=== PATIENT | female | born 1950 | race Caucasian/White ===

== ENCOUNTER → 2016-05-04 | Outpatient (CLI) | payer MEDICARE | LOC: SL 10:00 | PROVIDERS: ATTEND Family Medicine | DX: G47.33 Obstructive sleep apnea (adult) (pediatric) (principal); G47.30 Sleep apnea, unspecified ==

== ENCOUNTER → 2016-05-18 | Outpatient (CLI) | payer MEDICARE | LOC: SL 20:30 | PROVIDERS: ATTEND Family Medicine | DX: G47.19 Other hypersomnia (principal); R06.83 Snoring; I10 Essential (primary) hypertension ==

== ENCOUNTER 2016-06-07 20:55 | Emergency (ER) | payer MEDICARE ==
[2016-06-07] MEDS ORDERED: OXYMETAZOLINE NASAL SPRAY 15 ML BTTL ONE (21:38)
[2016-06-07] MEDS ORDERED: OXYMETAZOLINE NASAL SPRAY 15 ML BTTL BNAS ONE (21:41)
[2016-06-07] MEDS ORDERED: KETOROLAC TROMETHAMINE INJ 30 MG/ML VIAL IM ONE (21:43)
[2016-06-07] MEDS ORDERED: cefTRIAXone SODIUM 1 GM VIAL IM ONE (21:51)
[2016-06-07] MEDS ORDERED: LIDOCAINE 1% 10 ML VIAL INJ ONE (21:53)
--- NOTE | 2016-06-07 22:33 | ED.PDOC ---
History of Present Illness - General Chief Complaint: ENT Problem Stated Complaint: left ear pain, sinus congestion Time Seen by Provider: 06/07/16 21:39 Source: patient, RN notes reviewed, Vital Signs reviewed Exam Limitations: no limitations - History of Present Illness Initial Comments: Patient is a 66 y/o female who has had severe left ear pain and bleeding from the ear for the past 4 hours. She took ASA 325 mg however it did not help. The pain is about a 4/10, however she gets severe shooting pains in the ear. She has had problems with nasal congestion for the past several days, and went to blow her nose and felt sudden pressure behind her ear and then shooting pain. The bleeding is mild. She has had a low-grade fever for the past 2 days. Timing/Duration: abrupt, this evening Severity: severe EENT Location: ear (L) Prearrival Treatment: over the counter meds - ASA 325 mg Improving Factors: nothing Worsening Factors: nothing Associated Symptoms: ear drainage, facial pain/swelling, nasal congestion/ drainage Allergies/Adverse Reactions: Allergies Atropine [From Lomotil] Allergy (Verified 03/01/15 15:54) Capsaicin Allergy (Verified 06/07/16 21:22) Diphenoxylate [From Lomotil] Allergy (Verified 03/01/15 15:54) Neomycin Allergy (Verified 06/07/16 21:22) Pioglitazone [From Actos] Allergy (Verified 06/07/16 21:22) Home Medications: Ambulatory Orders Metoprolol Tartrate [Lopressor] 50 mg PO BID 08/23/12 Levothyroxine Sodium 125 mcg PO DAILY 03/02/15 Cefdinir [Omnicef] 300 mg PO BID #20 cap 06/07/16 Mometasone Furoate (Nasal) [Nasonex] 100 mcg OH DAILY PRN #1 ea 06/07/16 Review of Systems - Review of Systems Constitutional: States: chills, fever EENTM: States: ear pain, ear discharge, nose congestion Respiratory: States: no symptoms reported Cardiology: States: no symptoms reported Gastrointestinal/Abdominal: States: no symptoms reported Genitourinary: States: no symptoms reported Musculoskeletal: States: no symptoms reported Skin: States: no symptoms reported Neurological: States: no symptoms reported Endocrine: States: no symptoms reported Hematologic/Lymphatic: States: no symptoms reported All other Systems: Reviewed and Negative Past Medical History (General) - Patient Medical History Hx Seizures: No Hx Stroke: No Hx Dementia: No Hx Asthma: Yes Hx of COPD: No Hx Cardiac Disorders: No Hx Congestive Heart Failure: No Hx Pacemaker: No Hx Hypertension: Yes Hx Thyroid Disease: Yes Hx Diabetes: Yes Hx Gastroesophageal Reflux: No Hx Renal Disease: No Hx Cancer: No Hx of HIV: No Hx Hepatitis C: No Hx MRSA: No Surgical History: cholecystectomy, tonsillectomy - Vaccination History Hx Tetanus, Diphtheria Vaccination: No Hx Influenza Vaccination: No Hx Pneumococcal Vaccination: No Immunizations Up to Date: No - Social History Hx Tobacco Use: No Hx Chewing Tobacco Use: No Hx Alcohol Use: No Hx Substance Use: No Hx Substance Use Treatment: No Hx Depression: No Feels Threatened In Home Enviroment: No Feels Threatened In a Relationship: No Hx Physical Abuse: No Hx Emotional Abuse: No Hx Suspected Abuse: No Family Medical History - Family History Mother Name: Keena Ybarra Age (years): 76 Living Status: Age at (years of age): 76 Cause of : Breast cancer. Hx Family Asthma: Yes - Pt. Hx Family Congestive Heart Failure: No Hx Family Hypertension: Yes - Parents and brother. Hx Family Stroke: No Hx Cardiac Disease: Yes - Father and brother. Hx Family Diabetes: Yes - Parents and pt. Hx Family Cancer: Yes - Mother, great grand mother breast cancer. Hx Family;Other: Mothers sister colon cancer. Pt with skin cancer. Physical Exam - Physical Exam General Appearance: Alert, Obvious distress Eye Exam: bilateral normal Ear Exam: right ear: canal normal, TM normal, left ear: TM bulging, TM perforation, evidence of perforation, bleeding, other - Blood in the EAC, bilateral ear: auricle normal Nasal Exam: other - mucosal congestion Throat Exam: normal mouth inspection, pharynx normal Neck: non-tender, full range of motion, supple Cardiovascular/Respiratory: no respiratory distress Neurologic: alert, normal mood/affect, oriented x 3 Progress - Progress Progress: 06/07/16 22:35 Patient was given Afrin - 2 sprays each nostril, Toradol, and Rocephin. Her pain decreased significantly after the Toradol. She has an ENT in [place] , Dr. Olvera, that she can follow up with PEDRO PABLO. She will call his office in the morning. - Results/Orders Results/Orders: 06/07/16 06/07/16 21:07 21:17 Temperature 99.2 F Pulse Rate [ 81 monitor] Respiratory 16 16 Rate Blood Pressure 170/94 [Left Arm] O2 Sat by Pulse 99 Oximetry Departure - Departure Clinical Impression: Perforation of tympanic membrane Qualifiers: Laterality: left Qualifier Code: (H72.92) Unspecified perforation of tympanic membrane, left ear Rhinitis Qualifiers: Rhinitis type: allergic Allergic rhinitis type: unspecified Qualifier Code: ( J30.9) Allergic rhinitis, unspecified Time of Disposition: 22:40 Disposition: Discharge to Home or Self Care Condition: Good Departure Forms: ED Discharge - Pt. Copy, Patient Portal Self Enrollment Instructions: DI for Tympanic Membrane Perforation-Adult Diet: resume usual diet Referrals: Alton Olvera MD [Physicians] - 1-2 Days Prescriptions: Mometasone Furoate (Nasal) [Nasonex] 100 mcg OH DAILY PRN #1 ea PRN Reason: Nasal Congestion Cefdinir [Omnicef] 300 mg PO BID #20 cap Home Medications: Ambulatory Orders Metoprolol Tartrate [Lopressor] 50 mg PO BID 08/23/12 Levothyroxine Sodium 125 mcg PO DAILY 03/02/15 Cefdinir [Omnicef] 300 mg PO BID #20 cap 06/07/16 Mometasone Furoate (Nasal) [Nasonex] 100 mcg OH DAILY PRN #1 ea 06/07/16 Additional Instructions: If insurance does not cover Nasonex, may get over the counter Flonase or Nasacort, two sprays each nostril daily. Get over the counter Afrin and use two sprays in each nostril every 12 hours. Use this only for three days maximum. May also use over the counter pseudoephedrine for a maximum of three days. Tylenol alternated with Ibuprofen every three hours for pain. Follow up in ED if pain worsens. Follow up with Dr. Dr. Olvera in 1-2 days.
[2016-06-07 23:02] VITALS: BP 134/80
[2016-06-07 23:03] VITALS: TEMP 101.3; O2SAT 95
== END 2016-06-07 23:03 | disposition home or self-care (01) ==
LOC: ER 20:55
DX: J30.9 Allergic rhinitis, unspecified (principal); H72.92 Unspecified perforation of tympanic membrane, left ear; I10 Essential (primary) hypertension; E07.9 Disorder of thyroid, unspecified; E11.9 Type 2 diabetes mellitus without complications; J45.909 Unspecified asthma, uncomplicated; Z79.899 Other long term (current) drug therapy; Z88.8 Allergy status to other drugs, medicaments and biological substances; Z88.3 Allergy status to other anti-infective agents
CPT/HCPCS: J0696; J1885

== ENCOUNTER → 2016-09-22 | Outpatient (CLI) | payer MEDICARE | END | disposition home or self-care (01) | LOC: MRI 10:11 | PROVIDERS: ATTEND Family Medicine | DX: M54.16 Radiculopathy, lumbar region (principal) ==

== ENCOUNTER → 2016-11-30 | Outpatient (CLI) | payer MEDICARE ==
--- NOTE | 2016-12-01 13:26 | MAM ---
EXAM DESCRIPTION: 3D Screening BILATERAL CLINICAL HISTORY: 66 yearsFemaleSCREENING . No complaints. Mother with breast cancer and grandmothers. Postmenopausal. No HRT. COMPARISON: 2-D digital screening bilateral study 11/24/2015.. Report from prior examination also reviewed. TECHNIQUE: Bilateral CC and MLO projection full-field images, 3-D tomosynthesis digital mammographic technique. Also bilateral synthesized CC/ MLO full-field images. CAD not utilized. FINDINGS: The breast parenchymal density pattern is: Extremely dense breast tissue, which lowers the sensitivity of mammography. No skin thickening or nipple retraction bilateral solitary microcalcifications. Bilateral axillary lymph nodes. Group of rounded and coarse calcifications in the upper outer quadrant of the posterior third of the right breast in the upper-outer quadrant of the mid left breast. No focal, stellate mass or density, focal asymmetry , and no suspicious microcalcifications bilaterally. Stable mammograms compared to prior study, taking into account differences in mammographic technique IMPRESSION: BI-RADS CATEGORY: 2 - BENIGN FINDINGS. FOLLOW UP: Routine digital bilateral screening, one year interval from November 2016. Written communication explaining the IMPRESSION and follow-up, will be mailed to the patient and referring health care provider. According to the [employer], yearly mammograms are recommended starting at age 40 and continuing as long as a woman is in good health. Any breast change noted on a breast self-exam should be reported promptly to the patient's healthcare provider. Breast MRI is recommended for women with an approximately 20-25% or greater lifetime risk of breast cancer, including women with a strong family history of breast or ovarian cancer and women who have been treated for Hodgkin's disease. A negative mammographic report should not delay tissue diagnosis in patients with significant clinical history or physical findings. Extremely dense breast tissue limits the sensitivity of digital mammography. Electronically signed by: Roberto Mercedes MD 12/01/2016 1:25 PM CDT
== END | disposition home or self-care (01) ==
LOC: MAMMO 13:52
PROVIDERS: ATTEND Family Medicine
DX: Z12.31 Encounter for screening mammogram for malignant neoplasm of breast (principal)
CPT/HCPCS: 77063; G0202

== ENCOUNTER → 2017-01-07 | Outpatient (CLI) | payer MEDICARE ==
--- NOTE | 2017-01-10 14:10 | CT ---
EXAM DESCRIPTION: Lumbar Spine: CT CLINICAL HISTORY: LOWER BACK PAIN FOLLOW UP BACK SURGERY COMPARISON: CT abdomen and pelvis 10/28/2015. TECHNIQUE: Spiral, axial 2.5 mm scans through the lumbar spine without contrast. Oral and sagittal 2.0 mm reconstructions. Total Exam DLP: 434.67 mGy-cm. This exam was performed according to our departmental CT dose-optimization program which includes automated exposure control, adjustment of the mA and/or kV according to patient size and/or use of iterative reconstruction technique; to reduce radiation dose to as low as reasonably achievable (ALARA). FINDINGS: L5-S1: Interbody fusion device. Trace anterolisthesis. Posterior bilateral transpedicular fusion with posterior link at the L5 level. Left S1 screw is protruding through the superior endplate. Minimal concavity in the endplate and the inferior L5 endplate. Anterior endplate spurs. Bilateral foraminal narrowing. Bilateral pars are intact. L4-5: Interbody fusion device with posterior bilateral transpedicular screws and cross-link at the level of the disc space. Minimal concavity in the superior and inferior endplates. Normal bone density around the screws. Right L5 screw protrudes through the anterior lateral cortex of the L5 vertebral body. Grade 1 anterolisthesis. Mild right foraminal narrowing and moderate left foraminal narrowing. Left L4 pars spondylolysis. L3-4: Anterior and posterior disc bulge. Canal and mild foraminal narrowing bilaterally. Bilateral facet arthrosis. Bilateral pars L3 intact. L2-3: Anterior posterior disc bulge with anterior endplate ridging. Mild posterior disc bulge. No canal narrowing. Bilateral foramina are patent. Bilateral facet arthrosis. L1-2: No disc bulging. Canal and foramina are patent. Mild bilateral facet arthrosis. Anterior disc bulge and endplate ridging. T12-L1: Minimal anterior disc bulge and endplate ridging. Canal and foramina are patent. No compression deformities at any level. Dextroscoliosis. No paravertebral soft tissue mass. Diffuse atherosclerotic calcification of the abdominal aorta. IMPRESSION: 1. L5-S1 interbody fusion device in customary position. Minimal concavity of the endplates. Left S1 screw protruding through the superior endplate. Bone density is unremarkable. Bilateral foraminal narrowing. Trace anterolisthesis. 2. L4-5 interbody fusion device in customary position. Minimal concavity of the endplates. Right L5 screw protrudes through the anterior lateral cortex of the L5 vertebral body. Grade 1 anterolisthesis. Moderate left foraminal narrowing. Left L4 pars spondylolysis. 3. Posterior L3-4 disc bulge with mild canal and foraminal narrowing and bilateral facet arthrosis. Bilateral L3 pars are intact. 4. No compression deformities at any level. Electronically signed by: Roberto Mercedes MD 01/10/2017 2:08 PM [facility]
== END ==
LOC: CT 10:49
PROVIDERS: ATTEND Neurological Surgery
DX: M47.26 Other spondylosis with radiculopathy, lumbar region (principal); Z98.1 Arthrodesis status

== ENCOUNTER → 2017-02-14 | Outpatient (CLI) | payer MEDICARE | END | disposition home or self-care (01) | LOC: GMAH 10:22 | PROVIDERS: ATTEND Family Medicine | DX: E78.2 Mixed hyperlipidemia (principal) ==

== ENCOUNTER 2017-06-10 21:20 | Emergency (ER) | payer MEDICARE ==
--- NOTE | 2017-06-10 21:27 | ED.PDOC ---
History of Present Illness - General Chief Complaint: GI Problem Stated Complaint: nausea, vomiting Time Seen by Provider: 06/10/17 21:26 Source: patient Exam Limitations: no limitations - History of Present Illness Initial Comments: Amna Ybarra 67 y/o female with recent egd today stated that had uneventful procedure but felt nauseated on coming back home then ate lunch and supper tonight about 1830 h had 2-3 episodes of nausea/vomiting no diarrhea,no bm today.No abdominal pain,no hematemesis.no melena Timing/Duration: 4-6 hours Severity: moderate Improving Factors: nothing Worsening Factors: eating Associated Symptoms: other - see hpi Allergies/Adverse Reactions: Allergies Atropine [From Lomotil] Allergy (Verified 06/10/17 21:45) Capsaicin Allergy (Verified 06/10/17 21:45) Diphenoxylate [From Lomotil] Allergy (Verified 06/10/17 21:45) Neomycin Allergy (Verified 06/10/17 21:45) Pioglitazone [From Actos] Allergy (Verified 06/10/17 21:45) Home Medications: Ambulatory Orders Metoprolol Tartrate [Lopressor] 50 mg PO BID 08/23/12 Levothyroxine Sodium 125 mcg PO DAILY 03/02/15 Psyllium [Metamucil] 2 capsule PO DAILY 06/10/17 Review of Systems - Review of Systems Constitutional: States: no symptoms reported EENTM: States: no symptoms reported Respiratory: States: no symptoms reported Cardiology: States: no symptoms reported Gastrointestinal/Abdominal: States: see HPI Genitourinary: States: no symptoms reported All other Systems: Reviewed and Negative, No Change from Baseline Past Medical History (General) - Patient Medical History Hx Seizures: No Hx Stroke: No Hx Dementia: No Hx Asthma: Yes Hx of COPD: No Hx Cardiac Disorders: No Hx Congestive Heart Failure: No Hx Pacemaker: No Hx Hypertension: Yes Hx Thyroid Disease: Yes Hx Diabetes: Yes Hx Gastroesophageal Reflux: No Hx Renal Disease: No Hx Cancer: No Hx of HIV: No Hx Hepatitis C: No Hx MRSA: No Surgical History: cholecystectomy, tonsillectomy, other - nose,lower back - Vaccination History Hx Tetanus, Diphtheria Vaccination: No Hx Influenza Vaccination: No Hx Pneumococcal Vaccination: No - Social History Hx Tobacco Use: No Hx Chewing Tobacco Use: No Hx Alcohol Use: No Hx Substance Use: No Hx Substance Use Treatment: No Hx Depression: No Hx Physical Abuse: No Hx Emotional Abuse: No Hx Suspected Abuse: No - Activities of Daily Living Grooming Ability: Independent Eating (Feeding) Ability: Independent Toileting Ability: Independent Family Medical History - Family History Mother Name: Keena Ybarra Age (years): 76 Living Status: Age at (years of age): 76 Cause of : Breast cancer. Hx Family Asthma: Yes - Pt. Hx Family Congestive Heart Failure: No Hx Family Hypertension: Yes - Parents and brother. Hx Family Stroke: No Hx Cardiac Disease: Yes - Father and brother. Hx Family Diabetes: Yes - Parents and pt. Hx Family Cancer: Yes - Mother, great grand mother breast cancer. Hx Family;Other: Mothers sister colon cancer. Pt with skin cancer. Physical Exam - Physical Exam General Appearance: Alert, Comfortable, No apparent distress Eye Exam: bilateral normal Ears, Nose, Throat: hearing grossly normal, normal ENT inspection, normal pharynx Neck: non-tender, full range of motion, supple Respiratory: chest non-tender, lungs clear, normal breath sounds Cardiovascular/Chest: normal peripheral pulses, regular rate, rhythm, no gallop , no murmur Peripheral Pulses: radial,right: 2+, radial,left: 2+ Gastrointestinal/Abdominal: non tender, soft, no organomegaly, distended, other - decrease bowel sounds Back Exam: no CVA tenderness, no vertebral tenderness Extremity: non-tender, no pedal edema, no calf tenderness Neurologic: alert, oriented x 3 Skin Exam: normal color, warm/dry Progress - Progress Progress: 06/10/17 22:41 Vital Signs - 8 hr 06/10/17 06/10/17 21:28 22:20 Temperature 99.4 F 98.2 F Pulse Rate [ 80 75 left] Respiratory 18 18 Rate Blood Pressure 141/90 143/81 [left] O2 Sat by Pulse 96 98 Oximetry - Results/Orders Results/Orders: 06/10/17 21:28 IV Care:Saline Lock per Protoc QSHIFT 06/10/17 22:12 URINALYSIS Stat 06/10/17 23:39 Sodium Chloride 0.9% 1000ML [Ns 1000 ml] 1,000 ml IVS .QD Laboratory Results - last 24 hr 06/10/17 22:00 WBC 10.6 RBC 4.30 Hgb 13.9 Hct 40.1 MCV 93.5 MCH 32.3 H MCHC 34.5 RDW 12.8 Plt Count 177 MPV 7.3 L Absolute Neuts (auto) 8.90 H Absolute Lymphs (auto) 0.90 L Absolute Monos (auto) 0.70 Absolute Eos (auto) 0.10 Absolute Basos (auto) 0.00 Neutrophils % 84.3 H Lymphocytes % 8.4 L Monocytes % 6.2 Eosinophils % 0.9 L Basophils % 0.2 PT 11.6 INR 1.000 PTT (SP) 25.8 Sodium 141 Potassium 3.9 Chloride 107 Carbon Dioxide 23 Anion Gap 14.9 BUN 16 Creatinine 1.07 BUN/Creatinine Ratio 15.0 Random Glucose 186 H Serum Osmolality 287.3 Calcium 9.5 Magnesium 1.9 Total Bilirubin 1.0 Direct Bilirubin 0.2 Indirect Bilirubin 0.8 AST 30 ALT 26 Alkaline Phosphatase 61 Creatine Kinase 146 H CK-MB (CK-2) 4.9 H* CK-MB (CK-2) % 3.36 Troponin I < 0.02 Serum Total Protein 7.6 Albumin 4.7 Lipase 54 H - EKG/XRAY/CT CT Ordered: Yes - abd /pelvis-concern for SBO Departure - Departure Clinical Impression: Abdominal distension, Small bowel obstruction Nausea & vomiting Qualifiers: Vomiting type: unspecified Vomiting Intractability: unspecified Qualified Code( s): R11.2 - Nausea with vomiting, unspecified Time of Disposition: 02:32 Disposition: Transfer to Hospital Condition: Fair Departure Forms: Patient Portal Self Enrollment Referrals: Panchito Sanders MD [Primary Care Provider] - 1-2 Weeks Home Medications: Ambulatory Orders Metoprolol Tartrate [Lopressor] 50 mg PO BID 08/23/12 Levothyroxine Sodium 125 mcg PO DAILY 03/02/15 Psyllium [Metamucil] 2 capsule PO DAILY 06/10/17 Transfer to Outside Facility - Transfer Information Accepting Provider:: Dr. Gonzales-Hospitalist Accepting Facility: [facility] Reason for Transfer: required specialist not available
[2017-06-10] MEDS ORDERED: SODIUM CHLORIDE 0.9% 500ML 500 ML IVS ONE (21:28)
[2017-06-10] MEDS ORDERED: ONDANSETRON INJ 4 MG/2 ML VIAL IV ONE (21:28)
--- NOTE | 2017-06-10 23:04 | CT ---
EXAM DESCRIPTION: Abdoment/Pelvis w/o Contrast CLINICAL HISTORY:67 years Female, elevated lipase ;n/v Comparison: October 28, 2015 antegrade the lumbar from January 07, 2017 TECHNIQUE: Contiguous axial images of the abdomen and pelvis were obtained followed by reconstruction images. This exam was performed according to our departmental dose-optimization program, which includes automated exposure control, adjustment of the mA and/or kV according to patient size and/or use of iterative reconstruction technique. FINDINGS: Lung bases: Lung bases are clear. Heart: Visualized heart is within normal limits in size. Liver:Diffuse low-attenuation throughout the liver consistent with hepatocellular disease/fatty infiltration. No focal liver lesion seen. Gallbladder:Cholecystectomy clips seen in the gallbladder fossa Spleen:Unremarkable Pancreas: Pancreas is unremarkable. Adrenal glands:Unremarkable Kidneys/ureters:Kidneys and ureters are unremarkable. Bladder:Unremarkable. Free fluid: No free fluid. Lymph nodes: No abnormal lymph nodes. Stomach/small bowel: Small hiatal hernia. Otherwise, Stomach is unremarkable. Mildly dilated loops of small bowel measuring up to 3 cm with transition to decompressed bowel loops within the left lower abdomen. Findings concerning for small bowel obstruction. Colonic diverticulosis without evidence of diverticulitis. Appendix: No evidence of appendicitis Vascular structures: Atherosclerotic vascular calcifications. Bones: No acute osseous abnormality. Posterior spinal fixation rods with screws and interbody disc spacers again noted. Soft tissues: Unremarkable. IMPRESSION: * Findings concerning for small bowel obstruction. Mildly dilated loops of small bowel with transition to decompressed bowel loops in left lower abdomen. * Colonic diverticulosis without evidence of diverticulitis. * Hepatic steatosis. * Small hiatal hernia. Electronically signed by: Christian Diamond MD 06/10/2017 11:02 PM CDT
[2017-06-10] MEDS ORDERED: SODIUM CHLORIDE 0.9% 1000ML 1,000 ML IVS PRN (23:39)
[2017-06-11 01:30] VITALS: O2SAT 99
--- NOTE | 2017-06-11 01:39 | RAD ---
Clinical history: Nasogastric tube placement. Sex: Female. : 1950. Technique: Supine view of the abdomen. Findings: Side-port for the nasogastric tube is near the gastroesophageal junction and should be advanced at least 8 cm. No dilated loops of small bowel are identified. Cholecystectomy clips are noted.. There is no mass. There is no opaque calculus. There are postsurgical changes at L4-S1. Impression: Side port for the nasogastric tube near the gastroesophageal junction. Recommend advancement by at least 8 cm. Electronically signed by: Luis A Figueredo MD 06/11/2017 1:37 AM CDT Workstation: [id number]
[2017-06-11 02:28] VITALS: BP 160/85; TEMP 98.6
== END 2017-06-11 02:50 | disposition short-term general hospital (02) ==
LOC: ER 21:20
DX: K56.609 Unspecified intestinal obstruction, unspecified as to partial versus complete obstruction (principal); R14.0 Abdominal distension (gaseous); I10 Essential (primary) hypertension; E07.9 Disorder of thyroid, unspecified; E11.9 Type 2 diabetes mellitus without complications
CPT/HCPCS: 36415; 74018; 74176; 80048; 80076; 81001; 82550; 82553; 83690; 84484; 85025; 85610; 85730; J2405; J7030; J7040

== ENCOUNTER → 2017-12-05 | Outpatient (CLI) | payer MEDICARE ==
--- NOTE | 2017-12-07 14:42 | MAM ---
EXAM DESCRIPTION: 3D Screening BILATERAL : Digital Mammography. CLINICAL HISTORY: 67 years Female . No complaints and no personal history of breast cancer. Mother with breast cancer. Also remote family history. No childbirth. Postmenopausal x15 years. No HRT Lifetime risk of developing breast cancer (Tyrer-Cuzick model)(%): 12.6. COMPARISON: Bilateral screening digital breast tomosynthesis 11/30/2016. TECHNIQUE: Bilateral CC and MLO projection full-field images, Digital tomosynthesis mammographic technique. Bilateral digital 2-D full-field MLO images. CAD not utilized. FINDINGS: The breast parenchymal density pattern is: Heterogeneously dense breast tissue, which may obscure small masses. No skin thickening or nipple retraction. A group of microcalcifications has developed in the middle third of the right breast approximately 8:30 o'clock 6 cm from the nipple. Benign appearance of the calcifications. Other bilateral solitary coarse and microcalcifications. Bilateral axillary lymph nodes. Stable calcifications in the left breast. No new focal, stellate mass or density, focal asymmetry , and no suspicious microcalcifications bilaterally. Stable mammograms compared to prior study. IMPRESSION: Benign exam. BIRAD CATEGORY: 2 BENIGN FINDINGS. RECOMMENDATIONS: FOLLOW UP: Routine digital bilateral screening, one year interval from November 2017. Written communication explaining the IMPRESSION and follow-up, will be mailed to the patient and referring health care provider. According to the [employer], yearly mammograms are recommended starting at age 40 and continuing as long as a woman is in good health. Any breast change noted on a breast self-exam should be reported promptly to the patient's healthcare provider. Breast MRI is recommended for women with an approximately 20-25% or greater lifetime risk of breast cancer, including women with a strong family history of breast or ovarian cancer and women who have been treated for Hodgkin's disease. A negative mammographic report should not delay tissue diagnosis in patients with significant clinical history or physical findings. Extremely dense breast tissue limits the sensitivity of digital mammography. Electronically signed by: Roberto Mercedes MD 12/07/2017 2:40 PM CDT
== END ==
LOC: MAMMO 11:00
PROVIDERS: ATTEND Family Medicine
DX: Z12.31 Encounter for screening mammogram for malignant neoplasm of breast (principal)

== ENCOUNTER → 2018-02-16 | Outpatient (CLI) | payer MEDICARE | LOC: GMAH 10:48 | PROVIDERS: ATTEND Family Medicine | DX: E03.9 Hypothyroidism, unspecified (principal); E78.2 Mixed hyperlipidemia ==

== ENCOUNTER → 2018-12-13 | Outpatient (CLI) | payer MEDICARE ==
--- NOTE | 2018-12-15 16:36 | MAM ---
EXAM DESCRIPTION: 3D Screening BILATERAL : Digital Mammography. CLINICAL HISTORY: 68 years Female SCREENING . No complaints. No personal history of breast cancer. Mother with breast cancer age 72. Remote family history of breast cancer. Menarche age 10. No childbirth. Postmenopausal. No HRT. Lifetime risk of developing breast cancer (Tyrer-Cuzick model)(%): 12.1. COMPARISON: Bilateral screening digital breast tomosynthesis 05 December 2017 and 30 November 2016. TECHNIQUE: Bilateral CC and MLO projection full-field images, digital tomosynthesis mammographic technique. Bilateral digital 2-D full-field MLO images. CAD not available for tomosynthesis or 2-D images. FINDINGS: The breast parenchymal density pattern is: Heterogeneously dense breast tissue, which may obscure small masses. No skin thickening or nipple retraction. Nodular-type fibroglandular densities bilaterally. Bilateral skin moles. Bilateral groups of microcalcifications and solitary microcalcifications. Increasing group of coarse microcalcifications in the posterior medial right breast near the chest wall. Associated with a soft tissue density. Not visualized on the CC images. No new focal, stellate mass or density, focal asymmetry , and no suspicious microcalcifications bilaterally. IMPRESSION: Possible fibroadenoma medial posterior right breast. BI-RADS CATEGORY: 0 - INCOMPLETE- Need additional imaging evaluation. FOLLOW-UP: Recall for additional imaging: Right breast full-field LM 2-D and tomosynthesis. Orthogonal digital Spot magnification of the region of interest posterior medial right breast. Right breast Exaggerated medial CC 2-D and tomosynthesis. Directed right breast ultrasound if indicated by diagnostic images.. Written communication concerning the IMPRESSION and Follow-up, will be mailed to the patient and referring health care provider. Electronically signed by: Roberto Mercedes MD 12/15/2018 4:34 PM CDT
== END ==
LOC: MAMMO 13:00
PROVIDERS: ATTEND Family Medicine
DX: Z12.31 Encounter for screening mammogram for malignant neoplasm of breast (principal)

== ENCOUNTER → 2018-12-27 | Outpatient (CLI) | payer MEDICARE ==
--- NOTE | 2018-12-27 18:58 | MAM ---
EXAM DESCRIPTION: Diagnostic Mammo,Right: Digital Mammography CLINICAL HISTORY: 68 yearsFemaleMICROCALCIFICATION FOUND ON DIAGNOSTIC IMAGING OF BREAST grouped microcalcifications posterior right breast.. COMPARISON: Bilateral screening digital breast tomosynthesis and November 2018.. TECHNIQUE: Right breast LM and CC projection full-field images, digital mammographic tomosynthesis technique. Right breast 2-D digital full-field MLO images. Right breast spot magnification CC MLO and exaggerated lateral CC projections CAD not utilized. FINDINGS: The breast parenchymal density pattern is: Heterogeneously dense breast tissue which may obscure small masses. No skin thickening or nipple retraction the cluster of calcifications in the posterior right breast at approximately 3:30-4:30 position is well demonstrated. Associated with the small soft tissue density. Similar type of calcifications has are seen in other groups of benign type microcalcifications, most likely a degenerating fibroadenoma. IMPRESSION: Benign exam. 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 BIRAD CATEGORY: 2 BENIGN FINDINGS. RECOMMENDATIONS: FOLLOW UP: Return to routine digital bilateral mammographic screening, one year interval from November 2018. Written communication explaining the IMPRESSION and follow-up, will be mailed to the patient and referring health care provider. The FINDINGS and the FOLLOW-UP plan were reviewed in person with the patient after the examination. According to the [employer], yearly mammograms are recommended starting at age 40 and continuing as long as a woman is in good health. Any breast change noted on a breast self-exam should be reported promptly to the patient's healthcare provider. Breast MRI is recommended for women with an approximately 20-25% or greater lifetime risk of breast cancer, including women with a strong family history of breast or ovarian cancer and women who have been treated for Hodgkin's disease. A negative mammographic report should not delay tissue diagnosis in patients with significant clinical history or physical findings. Extremely dense breast tissue limits the sensitivity of digital mammography. Electronically signed by: Roberto Mercedes MD 12/27/2018 6:57 PM CDT
== END ==
LOC: MAMMO 10:00
PROVIDERS: ATTEND Family Medicine
DX: R92.0 Mammographic microcalcification found on diagnostic imaging of breast (principal)
CPT/HCPCS: 77065; G0279

== ENCOUNTER → 2019-12-10 | Outpatient (CLI) | payer MEDICARE | LOC: GMAM 10:39 | PROVIDERS: ATTEND Family Medicine | DX: E03.9 Hypothyroidism, unspecified (principal); I10 Essential (primary) hypertension ==

== ENCOUNTER → 2019-12-14 | Outpatient (CLI) | payer MEDICARE ==
--- NOTE | 2019-12-14 15:34 | RAD ---
EXAM DESCRIPTION: Wrist,Left 3 Views CLINICAL HISTORY: 69 years, Female, PAIN IN LEFT WRIST COMPARISON: None FINDINGS: Left wrist 3 x-ray views is negative for fracture or dislocation. Carpal relationships are well-maintained. Distal radius and ulna appear intact. Normal metacarpals. Degenerative arthritic narrowing of the joints of the lateral carpus. Spurring is seen at the first carpometacarpal joint. Flattened sclerotic distal scaphoid. Degenerative narrowing of the interphalangeal joint of the thumb. IMPRESSION: Degenerative changes of the lateral carpus. Electronically signed by: Tyree Louise MD 12/14/2019 3:32 PM CDT
== END ==
LOC: RAD 08:20
PROVIDERS: ATTEND Orthopaedic Surgery
DX: M19.022 Primary osteoarthritis, left elbow (principal)

== ENCOUNTER → 2020-01-04 | Outpatient (CLI) | payer MEDICARE ==
--- NOTE | 2020-01-08 16:32 | MAM ---
EXAM DESCRIPTION: 3D Screening BILATERAL : Digital Mammography. CLINICAL HISTORY: 69 years Female SCREENING . No complaints. Mother with breast cancer age 76. Remote family history of breast cancer. Menarche age 10. No Childbirth. Menopause age 52. No HRT. Lifetime risk of developing breast cancer (Tyrer-Cuzick model)(%): 11.6. COMPARISON: Bilateral screening digital breast tomosynthesis November 2018 and November 2017. Right breast diagnostic digital tomosynthesis November 2018. TECHNIQUE: Bilateral CC and MLO projection full-field images, digital tomosynthesis mammographic technique. Bilateral digital 2-D full-field MLO images. CAD available for 2-D images. FINDINGS: The breast parenchymal density pattern is: Heterogeneously dense breast tissue, which may obscure small masses. No skin thickening or nipple retraction. Solitary microcalcifications. Skin mole markers. Nu groups of benign type microcalcifications associated with soft tissue densities and most likely degenerating fibroadenomas. Coarse calcifications. No new focal, stellate mass or density, focal asymmetry , and no suspicious microcalcifications bilaterally. Stable mammograms compared to prior study. IMPRESSION: Benign exam. BIRAD CATEGORY: 2 BENIGN FINDINGS. RECOMMENDATIONS: FOLLOW UP: Routine digital bilateral mammographic screening, one year interval from December 2019. Written communication explaining the IMPRESSION and follow-up, will be mailed to the patient and referring health care provider. According to the [employer], yearly mammograms are recommended starting at age 40 and continuing as long as a woman is in good health. Any breast change noted on a breast self-exam should be reported promptly to the patient's healthcare provider. Breast MRI is recommended for women with an approximately 20-25% or greater lifetime risk of breast cancer, including women with a strong family history of breast or ovarian cancer and women who have been treated for Hodgkin's disease. A negative mammographic report should not delay tissue diagnosis in patients with significant clinical history or physical findings. Extremely dense breast tissue limits the sensitivity of digital mammography. Electronically signed by: Roberto Mercedes MD 01/08/2020 4:30 PM [facility]
== END ==
LOC: MAMMO 11:30
PROVIDERS: ATTEND Family Medicine
DX: Z12.31 Encounter for screening mammogram for malignant neoplasm of breast (principal)

== ENCOUNTER 2020-01-30 05:07 | Day surgery (SDC) | payer MEDICARE ==
[2020-01-30] MEDS ORDERED: LACTATED RINGERS 1,000 ML ONE (06:40)
[2020-01-30] MEDS ORDERED: LIDOCAINE 1% 10 ML VIAL INJ ONE ×2 (07:00)
[2020-01-30] MEDS ORDERED: PROPOFOL 200 MG/20 ML VIAL IV ONE ×2 (07:00)
--- NOTE | 2020-01-30 10:03 | OP ---
DATE OF PROCEDURE: 01/30/20 PREOPERATIVE DIAGNOSIS: 1. Epigastric pain. 2. Right upper quadrant pain. 3. Nausea. 4. Weight loss. 5. Anorexia. 6. Change in bowel habits. POSTOPERATIVE DIAGNOSIS: 1. Small hiatal hernia. 2. Gastritis. 3. Diverticulosis. 4. Internal hemorrhoids. 5. Colonic polyps. PROCEDURE: 1. EGD plus biopsy. 2. Colonoscopy plus biopsy plus polypectomy. SURGEON: Solo Hutton MD. COMPLICATIONS: None. BLOOD LOSS: None. MEDICATIONS: Monitored anesthesia care. DESCRIPTION OF PROCEDURE: Informed consent was obtained prior to sedation. The preprocedure cardiopulmonary assessment was satisfactory. The patient was placed in the left lateral decubitus position and was sedated. The tip of the Olympus esophagogastroduodenoscope was inserted in the oropharynx and carefully advanced through the cricopharyngeus into the esophageal lumen. The esophagus was normal. There was no evidence of Ytler's esophagus, reflux esophagitis or other mucosal disease. Within the stomach, the patient has a small hiatal hernia. She also has antral gastritis. Biopsies of the gastritis were obtained with cold biopsy forceps. The remainder of the stomach was examined on direct and retroflexed views. Besides the hiatal hernia and antral gastritis, the antrum, body, fundus, cardia and incisura were unremarkable. The duodenum was examined down to the second portion and it was normal endoscopically. Biopsies were obtained with cold biopsy forceps looking for celiac sprue. The upper scope was then removed from the patient. The patient was rotated 180 degrees. A digital rectal exam revealed some mild hemorrhoid disease. The tip of the Olympus colonoscope was inserted in the rectum and guided over to the cecum. The cecum was identified by locating the ileocecal valve and appendiceal orifice. The [place] Bowel Prep Score was 7. The ileocecal valve was intubated and the terminal ileum was inspected and was normal. Retroflexed view of the right colon was obtained. The mucosa of the cecum, ascending colon, hepatic flexure, transverse colon, splenic flexure, descending colon and sigmoid colon was closely examined. Direct and retroflexed views of the rectum were obtained. The patient had 2 polyps. They were both sessile. They were between 3 and 5 mm in size. One was in the transverse colon and the second was in the ascending colon. Both were removed with cold snare and recovered. The patient had sigmoid diverticulosis. The patient had internal hemorrhoids as well. Otherwise, the colonoscopy was unremarkable. Biopsies were obtained of normal colon mucosa with cold biopsy forceps. These random colon biopsies were obtained to rule out microscopic colitis. The procedure was then terminated. RECOMMENDATIONS: 1. Followup on the biopsies. 2. Continue her current GI medication regimen. 3. Followup with Sarabjit Deras in 2 weeks. This can be either via telemedicine or in person at [facility], whichever the patient prefers. #[id number] cc: Sam Pabon MD [facility]
[2020-01-30 10:26] VITALS: BP 143/66
[2020-01-30 10:27] VITALS: TEMP 97.3; O2SAT 97
== END 2020-01-30 10:20 | disposition home or self-care (01) ==
LOC: AMB 05:07
PROVIDERS: ATTEND Internal Medicine Gastroenterology
DX: R10.13 Epigastric pain (principal); R19.4 Change in bowel habit; K29.50 Unspecified chronic gastritis without bleeding; D12.2 Benign neoplasm of ascending colon; D12.3 Benign neoplasm of transverse colon; K44.9 Diaphragmatic hernia without obstruction or gangrene; K57.30 Diverticulosis of large intestine without perforation or abscess without bleeding; K64.8 Other hemorrhoids; I10 Essential (primary) hypertension; E11.9 Type 2 diabetes mellitus without complications; G47.33 Obstructive sleep apnea (adult) (pediatric); D50.9 Iron deficiency anemia, unspecified; Z86.010 Personal history of colon polyps; Z80.0 Family history of malignant neoplasm of digestive organs; Z88.8 Allergy status to other drugs, medicaments and biological substances; Z79.899 Other long term (current) drug therapy
CPT/HCPCS: 00813; 36416; 43239; 45385; 82948; 88305; J3490; J7120

== ENCOUNTER → 2020-02-19 | Outpatient (CLI) | payer MEDICARE ==
--- NOTE | 2020-02-19 14:31 | CT ---
EXAM DESCRIPTION: Abdomen/Pelvis w/Contrast CLINICAL HISTORY: 70 years Female, RUQ PAIN TECHNIQUE: This exam was performed according to our departmental dose-optimization program, which includes automated exposure control, adjustment of the mA and/or kV according to patient size and/or use of iterative reconstruction technique. COMPARISON: June 10, 2017 FINDINGS: Visualized lung bases are grossly unremarkable. The liver is unremarkable. No suspicious hepatic lesion. No biliary dilatation. Cholecystectomy. The portal vein is patent. The spleen, pancreas and adrenal glands are unremarkable. Symmetric renal parenchymal enhancement. No hydronephrosis. No urolithiasis. Unremarkable bladder. No suspicious adnexal lesion. Scattered colonic diverticula without focal inflammatory change. No evidence of bowel obstruction. No findings to suggest appendicitis. Normal appendix. No adenopathy. No focal fluid collection. No free air. Normal caliber abdominal aorta. Moderate atherosclerotic disease. No urothelial lesion identified. Spinal fusion hardware. No acute or suspicious osseous abnormality. Scattered degenerative changes present. IMPRESSION: No evidence of acute process in the abdomen or pelvis. Electronically signed by: Lui Armenta MD 02/19/2020 2:29 PM TECHNICAL ARTIST
== END ==
LOC: CT 08:54
PROVIDERS: ATTEND Family Medicine
DX: Z01.812 Encounter for preprocedural laboratory examination (principal); R10.11 Right upper quadrant pain; E03.9 Hypothyroidism, unspecified; R63.4 Abnormal weight loss; E22.1 Hyperprolactinemia

== ENCOUNTER → 2020-03-03 | Outpatient (CLI) | payer MEDICARE ==
--- NOTE | 2020-03-03 16:54 | MRI ---
EXAM DESCRIPTION: Brain w/wo Contrast: Magnetic Resonance Imaging. CLINICAL HISTORY: 70 years Female OTHER VISUAL DISTURBANCES COMPARISON: MRI scan of the brain without contrast February 2015. TECHNIQUE: Multiplanar, high-field MRI, multiple conventional sequences, without and with gadolinium IV contrast. No adverse reactions. Multiple axial diffusion sequences. FINDINGS: Bilateral small foci of hyperintense FLAIR and T2-weighted signal in the subcortical white matter at the level of the ventricles extending into the inferior tracts bilaterally. Minimal periventricular hyperintense signal abutting the upper ventricles bilaterally extending into the bilateral centrum semiovale. Relative sparing of the bilateral temporal lobes. No hemorrhage, no cerebral edema, no mass-effect. No abnormal contrast enhancement. No diffusion restriction. Stable since the prior study. Normal signal in the bilateral basal ganglia. Normal contrast enhancement. Normal signal in the brainstem and cerebellar hemispheres. No hemorrhage, no cerebral edema, no mass-effect. Normal contrast enhancement. Concordance of the diffusion and non-diffusion sequences with no evidence of acute or subacute infarction. Cortical sulci, ventricles, and other CSF spaces, and the subdural spaces are normally configured for patient's age. No effacement or displacement. No midline shift. No extra-axial hemorrhage. Normal contrast enhancement. Normal flow signal void in the major vessels of the mechoopda Fowler, and the venous sinuses. IACs are symmetric bilaterally. Fluid in the left inferior mastoid air cells. No mass effect in the bilateral Cerebellopontine angles. Normal contrast enhancement. Pituitary gland occupies the lower half of the sella. Normal contrast enhancement. Base of the cerebellar tonsils is at the level of the foramen magnum. Mucoperiosteal thickening in the paranasal sinuses. No air-fluid levels. The bony calvarium is intact. IMPRESSION: 1. Bilateral small foci of subcortical white matter abnormal signal without enhancement or hemorrhage or mass effect. This is consistent with cerebral microvascular disease and aging. Similar process on the prior study. 2. Normal noncontrast MRI diffusion study with no evidence of significant ischemia, and no acute or subacute infarction. 3. Mild chronic paranasal sinusitis and mild left mastoiditis. Electronically signed by: Roberto Mercedes MD 03/03/2020 4:52 PM [facility]
== END ==
LOC: MRI 09:01
PROVIDERS: ATTEND Family Medicine
DX: H53.8 Other visual disturbances (principal); R90.82 White matter disease, unspecified; J32.9 Chronic sinusitis, unspecified; H70.92 Unspecified mastoiditis, left ear

== ENCOUNTER 2020-04-08 15:31 | Observation (INO) | payer MEDICARE ==
--- NOTE | 2020-04-08 16:18 | ED.PDOC ---
History of Present Illness - General Stated Complaint: Passed out, positive Covid Time Seen by Provider: 04/08/20 15:43 - History of Present Illness Initial Comments: Patient diagnosed with positive COVID-19 test as part of preoperative evaluation on 31 March. Since that time she has had fever and chills with temperature up to 101.9. Patient was placed on prescription Z-Leonardo and steroid by her primary doctor recently. She was given a monoclonal antibody infusion BAM Yesterday.Patient has a nonproductive cough with some mild dyspnea. She complains of a runny nose without sore throat. Patient said one episode of nonbloody diarrhea and no vomiting. She is not complaining of abdominal pain. Last night when the patient got out of bed she passed out twice. She does not know how long she was unconscious. The Episodes were not preceded by or followed by chest pain, diaphoresis, palpitations.Patient has no prior history of syncope. Timing/Duration: 24 hours Severity: severe Improving Factors: nothing Worsening Factors: nothing Associated Symptoms: cough, fever/chills Allergies/Adverse Reactions: Allergies Atropine [From Lomotil] Allergy (Verified 06/10/17 21:45) Capsaicin Allergy (Verified 06/10/17 21:45) Cefuroxime [From Ceftin] Allergy (Verified 01/23/20 10:05) Diphenoxylate [From Lomotil] Adverse Reaction (Verified 01/23/20 10:05) Neomycin Adverse Reaction (Verified 01/23/20 10:05) Pioglitazone [From Actos] Adverse Reaction (Verified 01/23/20 10:05) Home Medications: Ambulatory Orders Metoprolol Tartrate [Lopressor] 50 mg PO BID 08/23/12 Levothyroxine Sodium 112 mcg PO BEDTIME 03/02/15 Psyllium [Metamucil] 2 capsule PO BID 06/10/17 Ascorbic Acid [Vitamin C Plus Lee 500 mg] 1 chw PO BID 01/23/20 Probiotic Product [Probiotic Gummies] 1 chw PO DAILY 01/23/20 Review of Systems - Review of Systems Constitutional: States: see HPI, chills, fever, malaise EENTM: States: nose congestion Respiratory: States: see HPI, cough, short of breath Cardiology: States: see HPI, syncope. Denies: chest pain, palpitations Gastrointestinal/Abdominal: States: diarrhea. Denies: abdominal pain, vomiting Musculoskeletal: States: no symptoms reported Skin: States: no symptoms reported Neurological: States: no symptoms reported Endocrine: States: no symptoms reported Hematologic/Lymphatic: States: no symptoms reported Past Medical History (General) - Patient Medical History Hx Seizures: No Hx Stroke: No Hx Dementia: No Hx Asthma: Yes Hx of COPD: No Hx Cardiac Disorders: No Hx Congestive Heart Failure: No Hx Pacemaker: No Hx Hypertension: Yes Hx Thyroid Disease: Yes Hx Diabetes: Yes - fsbs 92 Hx Gastroesophageal Reflux: No Hx Renal Disease: No Hx Cancer: No Hx of HIV: No Hx Hepatitis C: No Hx MRSA: No - Vaccination History Hx Tetanus, Diphtheria Vaccination: No Hx Influenza Vaccination: No Hx Pneumococcal Vaccination: No - Social History Hx Tobacco Use: No Hx Chewing Tobacco Use: No Hx Alcohol Use: No Hx Substance Use: No Hx Substance Use Treatment: No Hx Depression: No Hx Physical Abuse: No Hx Emotional Abuse: No Hx Suspected Abuse: No Family Medical History - Family History Mother Name: Keena Ybarra Age (years): 76 Living Status: Age at (years of age): 76 Cause of : Breast cancer. Hx Family Asthma: Yes - Pt. Hx Family Congestive Heart Failure: No Hx Family Hypertension: Yes - Parents and brother. Hx Family Stroke: No Hx Cardiac Disease: Yes - Father and brother. Hx Family Diabetes: Yes - Parents and pt. Hx Family Cancer: Yes - Mother, great grand mother breast cancer. Hx Family;Other: Mothers sister colon cancer. Pt with skin cancer. Physical Exam - Physical Exam General Appearance: Alert, Comfortable Eye Exam: bilateral normal Ears, Nose, Throat: normal pharynx, other Neck: non-tender - Mucous membranes moist, full range of motion Respiratory: rales - Both upper lobes Cardiovascular/Chest: normal peripheral pulses, regular rate, rhythm Gastrointestinal/Abdominal: normal bowel sounds, non tender, soft Back Exam: normal inspection, no CVA tenderness Extremity: normal range of motion, no pedal edema, no calf tenderness Neurologic: survey research associate II-XII nml as tested, no motor/sensory deficits, normal mood/affect, oriented x 3 Progress - Progress Progress: 04/08/20 17:25 IV normal saline 500 ml infusionRemdesivir 200 mg IV. Decadron 10 mg IV. Ceftriaxone not given Due to cephalosporin allergy. Azithromycin held due to prior ministration Oral prescription. 04/08/20 17:27 04/08/20 17:32 Discussed with nurse practitionerjames Hospitalist on-call for [facility]: Will admit To this facility. - Results/Orders Results/Orders: EXAM DESCRIPTION: Chest,1 View CLINICAL HISTORY: Covid, pneumonia COMPARISON: None. IMPRESSION: Single AP portable upright view of the chest shows mild enlargement of the cardiac silhouette without pulmonary vascular congestion. Lungs are normally aerated. Mild increased interstitial markings are seen in the right lower lobe and left mid chest to lower lobe regions. Findings are suspicious for bilateral viral pneumonia. No pleural effusion or pneumothorax is seen.. Electronically signed by: Jozef Mckenna MD 04/08/2020 4:[address] [employer] ElectroCardiogram, normal sinus rhythm, 67/min, normal tracing. 04/08/20 16:28 Telemetry STAT 04/08/20 16:30 EKG STAT Pulse Ox, Continuous Monitoring STAT 04/08/20 16:31 Sodium Chloride 0.9% 1000ML [Ns 1000 ml] 1,000 ml IVS ONCE 04/08/20 16:32 Remdesivir 200 mg Sodium Chloride 0.9% 250Ml [NS 250ml] 250 ml IVPB ONCE RAPID SARS-CoV-2 RNA Stat 04/08/20 16:45 B-TYPE NATRIURETIC PEPTIDE/BNP Stat C-REACTIVE PROTEIN Stat COMPLETE METABOLIC PROFILE Stat CREATINE PHOSPHOKINASE Stat LD-L/LDH Stat MAGNESIUM Stat RESPIRATORY PANEL 2 Stat 04/08/20 16:47 BLOOD CULTURE Stat 04/09/20 16:30 Pulse Ox, Continuous Monitoring STAT 04/10/20 16:30 Pulse Ox, Continuous Monitoring STAT Laboratory Results - last 24 hr 04/08/20 04/08/20 04/08/20 16:45 16:45 16:45 WBC 8.3 RBC 3.77 L Hgb 12.8 Hct 36.5 MCV 96.7 MCH 34.0 H MCHC 35.1 RDW 13.3 Plt Count 191 MPV 6.8 L Absolute Neuts (auto) 7.10 H Absolute Lymphs (auto) 0.70 L Absolute Monos (auto) 0.40 Absolute Eos (auto) 0.00 Absolute Basos (auto) 0.00 Neutrophils % 85.9 H Lymphocytes % 8.7 L Monocytes % 4.9 Eosinophils % 0.1 L Basophils % 0.4 PTT (SP) 26.5 D-Dimer, Quantitative 545.0 H Sodium 133 L Potassium 3.5 L Chloride 96 L Carbon Dioxide 25 Anion Gap 15.5 BUN 13 Creatinine 0.81 BUN/Creatinine Ratio 16.0 Random Glucose 137 H Serum Osmolality 268.6 L Calcium 8.5 Magnesium 2.2 Total Bilirubin 1.2 H AST 39 ALT 24 Alkaline Phosphatase 67 LD Total 252 H Creatine Kinase 77 Troponin I B-Natriuretic Peptide 99.8 Serum Total Protein 7.0 Albumin 3.5 Globulin 3.5 Albumin/Globulin Ratio 1.0 L 04/08/20 16:45 WBC RBC Hgb Hct MCV MCH MCHC RDW Plt Count MPV Absolute Neuts (auto) Absolute Lymphs (auto) Absolute Monos (auto) Absolute Eos (auto) Absolute Basos (auto) Neutrophils % Lymphocytes % Monocytes % Eosinophils % Basophils % PTT (SP) D-Dimer, Quantitative Sodium Potassium Chloride Carbon Dioxide Anion Gap BUN Creatinine BUN/Creatinine Ratio Random Glucose Serum Osmolality Calcium Magnesium Total Bilirubin AST ALT Alkaline Phosphatase LD Total Creatine Kinase Troponin I < 0.02 B-Natriuretic Peptide Serum Total Protein Albumin Globulin Albumin/Globulin Ratio Vital Signs - 24 hr 04/08/20 16:25 Temperature 97.9 F Pulse Rate [ 71 Right Brachial] Respiratory 20 Rate Blood Pressure 128/79 [Right Arm] O2 Sat by Pulse 93 L Oximetry Departure - Departure Clinical Impression: Syncope, COVID-19 Disposition: Admit Patient Referrals: Sam Pabon MD [Primary Care Provider] - 1-2 Weeks Home Medications: Ambulatory Orders Metoprolol Tartrate [Lopressor] 50 mg PO BID 08/23/12 Levothyroxine Sodium 112 mcg PO BEDTIME 03/02/15 Psyllium [Metamucil] 2 capsule PO BID 06/10/17 Ascorbic Acid [Vitamin C Plus Lee 500 mg] 1 chw PO BID 01/23/20 Probiotic Product [Probiotic Gummies] 1 chw PO DAILY 01/23/20 Decision To Admit - Decistion To Admit Decision to Admit Reason: Medical Nature Decision to Admit Date: 04/08/20 Decision to Admit Time: 17:31
[2020-04-08] MEDS ORDERED: SODIUM CHLORIDE 0.9% 1000ML 1,000 ML IVS ONE (16:31)
[2020-04-08] MEDS ORDERED: DEXAMETHASONE INJ 10 MG/ML VIAL IV ONE (16:31)
[2020-04-08] MEDS ORDERED: REMDESIVIR 200 MG in SODIUM CHLORIDE 0.9% 250ML 250 ML IVPB ONE (16:32)
--- NOTE | 2020-04-08 16:49 | RAD ---
EXAM DESCRIPTION: Chest,1 View CLINICAL HISTORY: Covid, pneumonia COMPARISON: None. IMPRESSION: Single AP portable upright view of the chest shows mild enlargement of the cardiac silhouette without pulmonary vascular congestion. Lungs are normally aerated. Mild increased interstitial markings are seen in the right lower lobe and left mid chest to lower lobe regions. Findings are suspicious for bilateral viral pneumonia. No pleural effusion or pneumothorax is seen.. Electronically signed by: Jozef Mckenna MD 04/08/2020 4:48 PM [employer]
[2020-04-08] MEDS ORDERED: SODIUM CHLORIDE 0.9% 500ML 500 ML IVS ONE (17:27)
--- NOTE | 2020-04-08 19:19 | HP ---
COLLABORATING PHYSICIAN: Bryn Vincent M.D. CHIEF COMPLAINT: Syncope. HISTORY OF PRESENT ILLNESS: This is a 70 year-old female who was diagnosed with COVID-19 on 03/31/20. She apparently was on a preoperative evaluation and tested positive. Since that time, she had some progressive worsening where her fever spiked. It went as high as 101.9. She does not complain of any significant shortness of breath but did have a cough. She was placed on a Z-Leonardo as well as steroid by her primary care physician. Additionally she was given monoclonal antibody infusion yesterday. However, last night she states that she had a syncopal episode. She stated to the Emergency Room physician that this happened to her twice. When I asked her what happened she said she does not really remember, but states she was going to go make her something to eat in the microwave. She does not remember a whole lot about those events other than she does remember going down to the floor, but then woke up on the floor and does not know how long she was there. She did not have any chest pain. No palpitations. No diaphoresis. These events were last night. Anyhow, she came to the Emergency Room today and was seen. She really had an unremarkable workup. Her CBC was normal white count, normal hemoglobin. D-dimer was mildly elevated at 545. She had sodium 133, potassium 3.5, chloride 96, glucose 137, C reactive protein 16.1, troponin was negative at 0.02. Chest x-ray was done which showed some mild increased interstitial markings right lower lobe and left mid chest to lower lobe regions. Due to the syncope, she was referred for observational admission. EKG was normal, but due to the continued fever and pneumonitis seen on the x-ray, she was given Remdesivir in the Emergency Room. At time of examination, the patient is alert and oriented in no distress. PAST MEDICAL HISTORY: 1. Hypothyroidism. 2. Diabetes mellitus. 3. Diverticulosis. 4. Colon polyps. 5. Sleep apnea. PAST SURGICAL HISTORY: 1. Tonsillectomy. 2. Cholecystectomy. 3. Septal reconstruction surgery. CURRENT MEDICATIONS: ALLERGIES: ATROPINE, CAPSAICIN, CEFUROXIME, DIPHENOXYLATE, NEOMYCIN AND ACTOS. FAMILY HISTORY: Father and brother have diabetes mellitus. Mother and brother have cancer. SOCIAL HISTORY: Nondrinker, nonsmoker. No illicit drugs. REVIEW OF SYSTEMS: CONSTITUTIONAL: Positive for fever, chills and fatigue. HEENT: No headaches, vision changes, ear pain, nasal congestion or throat pain. RESPIRATORY: Positive for cough. No shortness of breath or hemoptysis. CARDIOVASCULAR: No chest pain, palpitations or peripheral edema. GASTROINTESTINAL: No nausea or vomiting. Did have an episode of diarrhea. No abdominal pain. GENITOURINARY: No dysuria, frequency or flank pain. ENDOCRINE: No polydipsia, polyuria or polyphagia. No heat or cold intolerance. MUSCULOSKELETAL: No joint pain, joint swelling or muscle cramps. SKIN: No rashes, lesions or wounds. NEUROLOGIC: Positive for syncope. No paresthesias or seizures. PHYSICAL EXAMINATION: VITAL SIGNS: Blood pressure 136/75, heart rate 82, respiratory rate 16, temperature 97.9, oxygen saturation 96%. GENERAL: Ms. Ybarra is a 70 year-old female who is in no acute distress. NEUROLOGIC: The patient is alert. LUNGS: With a little bit of basilar rales. CARDIOVASCULAR: Regular rate and rhythm. Normal S1, S2. ABDOMEN: Soft. Positive bowel sounds. EXTREMITIES: Lower extremities with no edema, 2+ pulses. Capillary refill less than 2 seconds. LABORATORY: Labs and films reviewed via the EMR. ASSESSMENT: 1. Syncopal episode. 2. COVID pneumonitis. 3. Hypertension. 4. Diabetes mellitus. 5. Hypothyroidism. PLAN: Unclear cause of syncope, but have to consider hypoglycemia. She is apparently a diet-controlled diabetic. Will place her on continuous cardiac exercise specialist and do neuro checks every 4 hours. Additionally will give her some IV fluids as well. Regarding COVID-19, will start her on Remdesivir and empiric Levaquin due to her allergies. Will also place her on scheduled Dexamethasone. I put her on scheduled bronchodilators and Mucinex as well as bronchial hygiene therapy as well. Will continue to monitor every 24 hours. If she remains stable regarding the syncope and she does not require oxygenation, will consider discharge after 24 hours. Will restart her home medications once they are verified in the computer. Additionally, I have placed her on a.c. and h.s. glucose checks to ensure she is not having low blood sugars. Will hold off on any kind of insulin coverage for now. #[id number] [facility]
[2020-04-08] MEDS ORDERED: SODIUM CHLORIDE 0.9% (FLUSH) 10 ML SYG IV PRN (19:43)
[2020-04-08] MEDS ORDERED: LACTATED RINGERS 1,000 ML IVS PRN (19:43)
[2020-04-08] MEDS ORDERED: GLUCAGON INJ 1 MG VIAL SUBCU PRN (19:58)
[2020-04-08] MEDS ORDERED: DEXTROSE 50% 25 GM/50 ML SYG IV PRN (19:58)
[2020-04-08] MEDS ORDERED: IV SET AND CAP CHANGE INJ INJ SCH (20:00)
[2020-04-08] MEDS ORDERED: ALBUTEROL INHALER 64 PUFF/8GM INH SCH (20:00)
[2020-04-08] MEDS ORDERED: levoFLOXacin 750MG IV 750 MG in PREMIX BAG 1 BAG IVPB SCH (20:00)
[2020-04-08] MEDS ORDERED: ENOXAPARIN SODIUM 40 MG/0.4 ML SYG SUBCU SCH (20:00)
[2020-04-08] MEDS ORDERED: ENOXAPARIN SODIUM 40 MG/0.4 ML SYG SUBCU ONE (20:13)
[2020-04-08] MEDS: guaiFENesin ER TAB 600 MG TAB PO SCH (20:59)
[2020-04-08] MEDS ORDERED: LEVOTHYROXINE SODIUM 0.088 MG TAB PO SCH (21:00)
[2020-04-08] MEDS ORDERED: LEVOTHYROXINE SODIUM 0.088 MG TAB ONE (21:24)
[2020-04-08] MEDS: PSYLLIUM PO SCH (21:25)
[2020-04-08] MEDS: METOPROLOL TARTRATE 50 MG TAB PO SCH (21:25)
[2020-04-08] MEDS: ASCORBIC ACID 500 MG TAB PO SCH (21:25)
[2020-04-09] MEDS ORDERED: LACTATED RINGERS 0 ML ONE (00:21)
[2020-04-09] MEDS ORDERED: DEXAMETHASONE INJ 10 MG/ML VIAL ONE (07:27)
[2020-04-09] MEDS ORDERED: LACTATED RINGERS 1,000 ML ONE (08:53)
[2020-04-09] MEDS ORDERED: PROBIOTIC GUMMIES PO SCH (09:00)
[2020-04-09] MEDS ORDERED: DEXAMETHASONE INJ 4 MG/ML VIAL IV SCH (09:00)
[2020-04-09] MEDS: METOPROLOL TARTRATE 50 MG TAB PO SCH (09:02)
[2020-04-09] MEDS: guaiFENesin ER TAB 600 MG TAB PO SCH (09:02)
[2020-04-09] MEDS: ASCORBIC ACID 500 MG TAB PO SCH (09:02)
[2020-04-09] MEDS: PSYLLIUM PO SCH (09:03)
[2020-04-09 09:06] VITALS: TEMP 94.9; O2SAT 94
[2020-04-09 10:40] VITALS: BP 142/78
[2020-04-09] MEDS ORDERED: REMDESIVIR 100 MG in SODIUM CHLORIDE 0.9% 250ML 250 ML IVPB SCH (17:00)
--- NOTE | 2020-04-09 19:28 | DS ---
SUPERVISING PHYSICIAN: Bryn Vincent M.D. ADMISSION DIAGNOSIS: 1. Syncopal episode. 2. COVID pneumonitis. 3. Hypertension. 4. Diabetes mellitus. 5. Hypothyroidism. DISCHARGE DIAGNOSIS: 1. Syncopal episode, etiology not certain, but no recurrence. Normal tilt vital signs possibly due to some mild dehydration. 2. COVID pneumonitis. 3. Hypertension. 4. Diabetes mellitus. 5. Hypothyroidism. REASON FOR HOSPITALIZATION: This is a 70 year-old female who was diagnosed with COVID-19 on 03/31/20. She apparently was on a preoperative evaluation and tested positive. Since that time, she had some progressive worsening where her fever spiked. It went as high as 101.9. She does not complain of any significant shortness of breath but did have a cough. She was placed on a Z-Leonardo as well as steroid by her primary care physician. Additionally she was given monoclonal antibody infusion yesterday. However, last night she states that she had a syncopal episode. She stated to the Emergency Room physician that this happened to her twice. When I asked her what happened she said she does not really remember, but states she was going to go make her something to eat in the microwave. She does not remember a whole lot about those events other than she does remember going down to the floor, but then woke up on the floor and does not know how long she was there. She did not have any chest pain. No palpitations. No diaphoresis. These events were last night. Anyhow, she came to the Emergency Room today and was seen. She really had an unremarkable workup. Her CBC was normal white count, normal hemoglobin. D-dimer was mildly elevated at 545. She had sodium 133, potassium 3.5, chloride 96, glucose 137, C reactive protein 16.1, troponin was negative at 0.02. Chest x-ray was done which showed some mild increased interstitial markings right lower lobe and left mid chest to lower lobe regions. Due to the syncope, she was referred for observational admission. EKG was normal, but due to the continued fever and pneumonitis seen on the x-ray, she was given Remdesivir in the Emergency Room. At time of examination, the patient is alert and oriented in no distress. LABORATORY STUDIES: White count at discharge was 4,800, hemoglobin 11.8, hematocrit 33.9, platelet count 165,000. Differential did show a left shift. Coagulation studies showed a normal D-dimer at discharge. Chemistries were showing sodium 136, potassium was a little bit low at 3.5, otherwise the rest of the electrolytes were normal. Creatinine was at 0.63, blood sugars were 179 to 223, calcium 8.3, magnesium 2.2. Liver functions were within normal limits. C reactive protein had gone down to 16.1 to 15.0. TSH was a little low at 0.31. Urinalysis was unremarkable. MICROBIOLOGY: Blood cultures were pending at 24 hours showing to be negative. RADIOLOGY: She had a chest x-ray on admission that showed single view chest showed lungs to be normally aerated with some mild increased interstitial markings in the right lower lobe and left chest lower lobe region with findings suspicious of bilateral viral pneumonia. No pneumothorax or pleural effusions were noted. 12-lead EKG showed normal sinus rhythm at 67 [id number] with no ST or T wave changes to indicate acute ischemia. Her telemetry overnight did not show any significant changes. No ectopy. HOSPITAL COURSE: Ms. Ybarra was admitted for a single episode with associated COVID. She did have a monoclonal antibody infusion on the Tuesday prior to admission. She was actually showing saturations on admission on room air at 92 to 94%. On the day of discharge, she was showing 94% saturation. She got fluids overnight. She was given a dose of Remdesivir and started on antibiotics including Levaquin due to her allergies to Cefdinir. She was also given Decadron and Albuterol treatments. She did show good clinical improvement and was showing to be stable. On day of discharge, her orthostatic blood pressures were good with no significant changes from sitting to standing. She was satting 94% on room air at rest. So she clinically remained stable enough and improved to continue with outpatient management. PLAN: Ms. Ybarra was discharged on 04/09/20 with instructions to followup with Dr. Pabon on 04/11/20 at 9:00 AM via televisit. She was to continue all of her previous medications. She was to continue a diabetic diet as tolerated. She was given prescriptions for continuation of treatment of underlying COVID pneumonitis with: 1. Decadron 6 mg daily, #7, no refills. 2. Levaquin 750 mg daily, #4, no refills. 3. Guaifenesin 600 mg twice daily while on antibiotics. 4. Albuterol inhaler as needed, 2 puffs. One inhaler, no refills. In regards to her syncopal episode, probably at some point she will need to have further workup in regards to that, but at the time of discharge she was showing to be stable. Condition on discharge was stable and improving. DISPOSITION: The patient was discharged home. #[id number] [facility]
== END 2020-04-09 11:40 | disposition home or self-care (01) ==
LOC: ER 15:31 → MS 19:11
PROVIDERS: ADMIT Nurse Practitioner; ATTEND Nurse Practitioner Family
DX: U07.1 COVID-19 (principal); J12.82 Pneumonia due to coronavirus disease 2019; R55 Syncope and collapse; I10 Essential (primary) hypertension; E11.65 Type 2 diabetes mellitus with hyperglycemia; E03.9 Hypothyroidism, unspecified; E87.6 Hypokalemia; Z79.890 Hormone replacement therapy; Z79.899 Other long term (current) drug therapy; Z88.1 Allergy status to other antibiotic agents; Z88.8 Allergy status to other drugs, medicaments and biological substances
CPT/HCPCS: 96366; 96365; 96375; 96376; 96372; J7030; J7050; J1650; J1100 ×2; J1956; J7120; 85379 ×2; 80053 ×2; 82948 ×2; 36415 ×3; 81001; 86140 ×2; 85025 ×2; 82550; 87040 ×2; 83615; 83735; 85730; 84443; 84484; 83880; 36416; 71045; 94760; 94664; 94762; 99285; 93005; G0378

== ENCOUNTER → 2020-04-21 | Outpatient (CLI) | payer MEDICARE | LOC: GMAM 16:59 | PROVIDERS: ATTEND Family Medicine | DX: E03.9 Hypothyroidism, unspecified (principal) ==